=== PATIENT | male | born 1945 | race Caucasian/White ===

== ENCOUNTER → 2017-06-27 | Outpatient (CLI) | payer MEDICARE, BC ==
[~2017-06-27] MED LIST: ASPIRIN 81MG TA81 MG PO; BACTRIM DS 8001 TAB PO; CALCIUM CARBON600 MG PO; FINASTERIDE5 MG PO; HYDROCODONE1 TABLET PO; LORTAB 500 MG-71 TAB PO; SIMVASTATIN10 MG PO
--- NOTE | 2017-06-27 11:38 | RADIOLOGY REPORT PS360 ---
UGI SERIES W/ AIR HISTORY: Upper GI bleed, dark bloody stools GI BLEEDING ORDERING PHYSICIAN: Ankush Fleming MD PATIENT AGE: 71 years COMPARISON: None FINDINGS: The esophagus and stomach have an unremarkable appearance. No mass or ulcerative lesion evident. There is a small sliding hiatal hernia. [place] leaf deformity deformity involving the duodenal bulb consistent with chronic peptic ulcer disease. No evidence of gastric outlet obstruction. The duodenal sweep has an unremarkable appearance. FLUOROSCOPY TIME : 1 minute and 44 seconds. IMPRESSION: [place] leaf deformity of the duodenal bulb consistent with chronic peptic ulcer disease
== END ==
LOC: RAD 09:24
DX: K92.2 Gastrointestinal hemorrhage, unspecified (principal)

== ENCOUNTER 2017-08-21 10:30 | Day surgery (SDC) | payer MEDICARE, BC ==
--- NOTE | 2017-08-21 12:24 | Operative Note ---
Upper GI Endoscopy Procedure date: 08/21/17 Date of : 45 Procedure:Upper GI Endoscopy Esophagogastroduodenoscopy with cold biopsies Indications: Mr. Phan is a 72-year-old gentleman who is here for diagnostic upper endoscopy. The patient did have melena/acute upper gastrointestinal hemorrhage over a month ago and was on Aleve. He also was having epigastric abdominal discomfort, heartburn, reflux, indigestion and dyspepsia. His upper gastrointestinal series on 06/27/2017 showed a cloverleaf deformity of the duodenal bulb consistent with chronic peptic ulcer disease. The patient was placed on omeprazole and Aleve was discontinued. He has had resolution of his symptoms and is now feeling well and asymptomatic. He reports no dysphagia. This is his first upper endoscopy. The patient did have a colonoscopy in 2013 showing diverticulosis. Performing Provider: Josue Escamilla MD Referring Provider: Ankush Fleming M.D. Sedation: Fentanyl 150 mg IV/Versed 6 mg IV Procedure: Prior to the procedure, a history and physical exam was performed, and patients medications and allergies were reviewed. The risks and benefits of the procedure and the sedation options and risks were discussed with the patient. All questions were answered and informed consent was obtained. The patient was brought to the procedure room. Patient identification and proposed procedure were verified by the physician and the nurse. The patient was placed in a left lateral decubitus position and the scope was passed under direct vision. Throughout the procedure, the patient's blood pressure, pulse, and oxygen saturations were monitored continuously. The endoscope was introduced through the mouth, and advanced to the second part of duodenum. The upper GI endoscopy was accomplished without difficulty. The patient tolerated the procedure well. Findings: The scope was passed directly into the upper esophagus and advanced to the third portion of the duodenum. The post bulbar duodenum had some very mildly scalloped conniventes which were biopsied. The scope was withdrawn into the duodenal bulb. Along the medial wall and involving a very deformed patulous pylorus was a healing duodenal ulcer that certainly had involved the pyloric channel since there was marked deformity with healing and some fibrosis. The scope was then withdrawn into the stomach. There was some mild linear erythema of the antrum. There was atrophy of the body and fundus of the stomach with chronic atrophic gastritis. Cold biopsies were taken from the antrum and also multiple biopsies were taken from the fundus. The remainder of the antrum, body and fundus of the stomach were grossly normal. Upon retroflexion there was a small 1-2 cm hiatal hernia. The scope was then withdrawn into the esophagus. There was an insignificant Schatzki's ring. There was no evidence of reflux esophagitis or George's. The remainder of the esophageal mucosa was normal. Immediate complications: None EBL (ml): 0 Impression: 1. 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 Mild reactive antritis 3. Mild chronic atrophic gastritis 4. Small hiatal hernia with insignificant Schatzki's ring Recommendations: I will follow up the biopsies to exclude H. pylori. I will also follow up biopsies to exclude gastric intestinal metaplasia. The patient is clinically much improved and I do feel that the ulcer was certainly in part related to nonsteroidal anti-inflammatory drugs/Aleve. at 1224
[2017-08-21 15:23] VITALS: BP 119/56
== END 2017-08-21 13:20 | disposition home or self-care (01) ==
LOC: SDC 10:30
PROVIDERS: Internal Medicine Gastroenterology
PROC: 0DB78ZX Excision of Stomach, Pylorus, Via Natural or Artificial Opening Endoscopic, Diagnostic (ICD-10-PCS; 2017-08-21)
PROC: 0DB68ZX Excision of Stomach, Via Natural or Artificial Opening Endoscopic, Diagnostic (ICD-10-PCS; principal; 2017-08-21 12:00)
DX: K26.9 Duodenal ulcer, unspecified as acute or chronic, without hemorrhage or perforation (principal); K44.9 Diaphragmatic hernia without obstruction or gangrene; K29.40 Chronic atrophic gastritis without bleeding; K29.60 Other gastritis without bleeding; K22.2 Esophageal obstruction